=== PATIENT | female | born 1965 | race Caucasian/White ===

== ENCOUNTER → 2017-01-07 | Outpatient (CLI) | payer BC ==
--- NOTE | 2017-01-08 11:59 | DI ---
RIGHT FOOT, 01/07/2017 4:01 PM: Clinical History: Right foot pain. Previous Exam: None at this facility. 3 weightbearing views are submitted. There is no acute soft tissue, osseous, or joint abnormality. Th ere is a bunion and a hallux valgus deformity. Reading: Hallux valgus. Bunion. The exam is otherwise normal.
== END ==
LOC: RAD 17:02
PROVIDERS: ATTEND Podiatrist Foot & Ankle Surgery
DX: M79.671 Pain in right foot (principal); M21.611 Bunion of right foot; M20.11 Hallux valgus (acquired), right foot
CPT/HCPCS: 73630

== ENCOUNTER → 2017-01-18 | Outpatient (CLI) | payer BC ==
--- NOTE | 2017-01-19 10:31 | DI ---
MRI LOW EXTREMITY JNT W/O CN,01/18/2017 2:08 PM: Clinical History: Right foot pain Previous Exam: None at this facility. Findings: Multiplanar MR images are obtained through the right foot without contrast. Bony alignment is anatomic. No fractures are seen. There is a hallux valgus deformity identified of t he first metatarsophalangeal joint. There are some mild degenerative changes noted as well. Signal within the musculature is unremarkable. There is no evidence of ganglion cyst. The major vascular flow voids are unremarkable as well. Impression: Mild hallux valgus deformity and some degenerative changes of the first metatarsophalangeal joint.
== END ==
LOC: MRI 14:01
PROVIDERS: ATTEND Podiatrist Foot & Ankle Surgery
DX: M79.671 Pain in right foot (principal); M21.071 Valgus deformity, not elsewhere classified, right ankle
CPT/HCPCS: 73721

== ENCOUNTER → 2017-03-04 | Outpatient (CLI) | payer BC ==
--- NOTE | 2017-03-04 17:31 | EKG ---
[address] [address] Measurements Intervals [place] Rate: 61 P: 62 MO: 147 QRS: 66 QRSD: 88 T: 62 QT: 420 QTc: 422 Interpretive Statements SINUS RHYTHM WITH SINUS ARRHYTHMIA No previous ECG available for comparison Electronically Signed On 03-05-17 07:54:57 MDT by Nato Edmond MD [email or web address]
== END ==
LOC: MOB EKG 16:40
PROVIDERS: ATTEND Podiatrist Foot & Ankle Surgery
DX: Z01.810 Encounter for preprocedural cardiovascular examination (principal)
CPT/HCPCS: 93005; 93010

== ENCOUNTER 2017-03-18 05:53 | Day surgery (SDC) | payer BC ==
[~2017-03-18 05:53] MED LIST: LIDOCAINE W/ SODIUM BICARB 0.5 ML SYR ONE; Lactated Ringers 1,000 ML PRIMARY IV ONE; ceFAZolin Inj 2gm (Premix) 50 ML IV ONE
[2017-03-18 07:00] VITALS: RESP 20
[2017-03-18] MEDS ORDERED: MEPIVACAINE HCL/PF 20 MG/1 ML IV ONE (07:06)
[2017-03-18] MEDS ORDERED: MIDAZOLAM 5 MG/1 ML ONE ×2 (07:06→09:35)
[2017-03-18] MEDS ORDERED: BUPIVACAINE 0.5% W/EPI MPF -30 ML VIAL IV ONE (07:07)
[2017-03-18] MEDS ORDERED: fentaNYL Inj 100 MCG/2 ML VIAL ONE ×2 (07:07→09:39)
[2017-03-18] MEDS ORDERED: DEXAMETHASONE PF 10 MG/1 ML VIAL ONE (07:07)
[2017-03-18] MEDS ORDERED: BUPivacaine Inj 0.5% PF (5mg/ml) 10ml vial ONE (07:36)
[2017-03-18] MEDS ORDERED: Lidocaine Inj 1% 20 ML ONE (07:36)
--- NOTE | 2017-03-18 07:50 | CRNA.PROCE ---
Nerve Block Documentation - - Safety Measures: Time Out Taken, Site Verified - - Type of Nerve Block Used: Right Popliteal Fossa Block (Primary anesthetic for popliteal fossa block.) Position for Nerve Block: Prone Moniters Used During Block: EKG, SPO2, NIBP Oxygen Sumpplented: Yes Sedation Used - Enter Amount in Comment Field: Midazolam (mg): Yes (3 mg), Fentanyl (mcg): Yes (50 mcgs) Skin Prep Used: ChloroPrep (Twice) Draped: No Technique: Nerve Stimulator Nerve Block Needle Used: 80 mm ProBlk II Stimulation Hz: 1.0 Stimulation Staring mA: 1.8 Stimulation Ending mA: 0.48 Local Anesthetic - Enter Amt in Comment Field: 0.5 % Bupivicaine with Epinephrine 1:200,000 (mL): Yes (20 ml in 3 ml increments), 2 % Mepivacaine (mL) : Yes (10 ml in 3 ml increments) Additives to Nerve Blocks: Clonidine (mg): Yes (10)
[2017-03-18] MEDS ORDERED: Lactated Ringers 1,000 ML PRIMARY IV ONE (09:37)
[2017-03-18] MEDS ORDERED: BUPivacaine Liposome/PF (Exparel) Inj 20ml vial INFIL ONE ×2 (12:11)
[2017-03-18] MEDS ORDERED: NORMAL SALINE 10 ML SYRINGE FLUSH IVP PRN (12:50)
[2017-03-18 14:48] VITALS: TEMP 98
--- NOTE | 2017-03-19 10:10 | GEN.OPNOTE ---
Operative Report Surgeon: Dr. David Bradford DPFernandez Anesthesia Type: Regional, Local, MAC Anesthesia Provider: Quynh Ho CRNA Surgery Date: 03/18/17 Preoperative Diagnosis: Right foot hallux valgus deformity, with painful hammertoes and capsulitis of metatarsophalangeal joints 2 through 5. Postoperative Diagnosis: Same Procedure: Right foot scarf bunionectomy with screw fixation. Extensor digitorum longus tendon lengthening digits 2 through 5. Estimated Blood Loss (mL): 40 Description of Procedure: Under mild sedation the patient was wheeled into the operating room placed on the table in the supine position a well-padded pneumatic ankle tourniquet was placed about the right foot the foot was prepped scrubbed and draped in usual aseptic manner an Esmarch bandage was used to exsanguinate the right foot attention was then directed to the dorsal-medial aspect of the first MPJ where linear longitudinal incision was made incision was deepened using sharp and blunt dissection care being taken to identify and retract all vital neurovascular structures the incision was carried down to the level of the first MPJ capsule where a capsulotomy was performed capsular structures were reflected both medially and laterally it was then carried down to the level of the medial bony eminence which was transected with an oscillating bone saw. Attention was then directed to the first interspace where incision was made and carried down to the level of the sesamoid apparatus the sesamoid sling on the lateral sesamoid was released hands releasing the lateral sesamoid. his helped bring the sesamoids back down to the more corrected position. The subcutaneous tissue was reapproximated with 3-0 Monocryl and the skin was reapproximated with or 4-0 nylon. Once this was done a reverse scaft osteotomy was performed. The long arm of the osteotom was shifted laterally and was fixated with K wires. The alignment was then checked under fluoroscopy. Good reduction of the intermetatarsal angle was noted. The K wires just barely went through the far cortex of the osteotomy site and were then measured the appropriate size [place] cannulated screw was then placed over the K wire once the drill hole had been countersunk and measured the proximal screw was a 15 mm screw in the distal one was a 12 mm the screws were self-tapping and self threading they were then placed across the osteotomy the osteotomy site with excellent compression. The placement of the screws was then double checked with the C-arm and it was noted that the screws were too long. If the screws are placed on the measuring guide and include the head they measure at least a millimeter long, hense the sizes did not correlate. The screws were then replaced with 13 mm proximally and a 10 mm screw distally with excellent compression and alignment this was double checked on fluoroscopy and showed good placement and the screws were not too long. and alignment the screws and alignment was checked with C-arm and was noted to be excellent. Any rough bony edges were then removed on the dorsal and medial aspect of the first metatarsal and on the side of the metatarsal along with redundant bone shelf once the capital fragment was shifted laterally. The 1st mpj capsule was then sewed close with 2-0 Vicryl and 3-0 vycril and a running interlocking suture technique. The sub Q and skin was then reapproximated and coapted with 3-0 Monocryl and running interdermal suture technique. And was reinforced with 3-0 Vicryl in horizontal mattress suture technique. The ankle tourniquet was let down for 22minutes. An Esmarch bandage was used and the foot was exsanguinated and the ankle cuff was reinflated to 250 mmHg. Attention was then directed to the second, third and fourth and fifth digits where a linear longitudinal incision approximately 1.5 cm in length was made over the second, third, fourth, and fifth digits at the level of the dorsal MPJ the incision was deepened using sharp and blunt dissection care being taken to identify and retract all vital neurovascular structures. Once the extensor digitorum longus tendon was identified, on the second, third, fourth and fifth digits a Z tendon lengthening procedure was performed on each of theses tendons. The subcutaneous tissue was then reapproximated with 3-0 Monocryl. The skin was reapproximated and coapted with 4-0 vycril in a running intra dermal suture technique. Long acting Exparel was injected in and about the sx sites. The ankle tourniquet was deflated and a prompt hyperemic response was noted to all digits. A dry sterile compressive dressing was then applied to the toes consisting of Mastisol , Steri-Strips, Adaptic, 4 x 4 gauze, Keke and Coban. The ankle tourniquet was deflated and the patient had proper hyperemic response. Following a brief period of postoperative monitoring the patient will be discharged home with written and oral oral postoperative instructions. Patient is to followup in the clinic in one week.
--- NOTE | 2017-03-19 10:52 | DI ---
RIGHT FOOT, 03/18/2017 12:50 PM: Clinical History: Right hallux valgus deformity. Previous Exam: 01/07/2017. 3 views are submitted. The patient is status post bunionectomy and osteotomy of the first metatarsal bone. The remainder of the examination is normal. Reading: Status post bunionectomy and first metatarsal osteotomy for correction of the hallux pelvis deformity .
--- NOTE | 2017-03-19 15:35 | OPS CRUTCH ---
Diagnosis : Right Bunionectomy/Tendon Lengthening Referral Reason: Gait Training/Cam Walker S: The patient states that she has had a boot before; however, she has not used a walker before. O: The patient ambulated 75' and ascended and descended three stairs. The patient was also issued a CAM walker and was instructed in its proper use and care. A: The patient tolerated gait and stair training well. P: No further therapy is indicated at this time. MTDD
== END 2017-03-18 14:00 | disposition home or self-care (01) ==
LOC: SDSC 05:53
PROVIDERS: ATTEND Podiatrist Foot & Ankle Surgery
DX: M20.11 Hallux valgus (acquired), right foot (principal); M20.41 Other hammer toe(s) (acquired), right foot; M77.51 Other enthesopathy of right foot and ankle
CPT/HCPCS: 28234 ×4; 28296; 73630; 76001; 97116; C9290; J0690; J2704; J3010; L4360; S0020; J0670; J1100; J2001; J2250; J3490; J7120

== ENCOUNTER → 2017-03-24 | Outpatient (CLI) | payer BC ==
--- NOTE | 2017-03-24 11:10 | DI ---
HISTORY: Post-surgical pain throughout entire foot. Surgery last week. FINDINGS: Examination reveals post surgical two screws in the mid shaft of the first metatarsal appa rently for old osteotomy with no evidence of recent fracture or dislocation. IMPRESSION: 1. Post-surgical changes without evidence of acute fracture.
== END ==
LOC: RAD 10:23
PROVIDERS: ATTEND Podiatrist Foot & Ankle Surgery
DX: M79.671 Pain in right foot (principal); Z47.89 Encounter for other orthopedic aftercare; Z98.890 Other specified postprocedural states
CPT/HCPCS: 73630

== ENCOUNTER → 2017-04-22 | Outpatient (CLI) | payer BC ==
--- NOTE | 2017-04-22 16:27 | DI ---
XR FOOT COMPLETE MIN 3VW WB,04/22/2017 3:12 PM: Clinical History: Right foot pain Previous Exam: 03/24/17 Findings: 3 views of the right foot are obtained, and demonstrate postsurgical changes consistent with first me tatarsal osteotomy. Surrounding soft tissues are unremarkable. There are no fractures seen. Impression: No significant change from the prior exam. Postsurgical changes as above.
== END ==
LOC: MOB RAD 15:13
PROVIDERS: ATTEND Podiatrist Foot & Ankle Surgery
DX: Z47.89 Encounter for other orthopedic aftercare (principal); M79.671 Pain in right foot; M79.2 Neuralgia and neuritis, unspecified; Z98.890 Other specified postprocedural states
CPT/HCPCS: 73630

== ENCOUNTER → 2017-06-08 | Outpatient (CLI) | payer BC ==
[2017-06-10 06:46] LABS: PARASITIC EXAM FIN 1508 (())
== END ==
LOC: LAB 10:17
PROVIDERS: ATTEND Family Medicine
DX: R19.7 Diarrhea, unspecified (principal); R50.9 Fever, unspecified; R10.84 Generalized abdominal pain
CPT/HCPCS: 87046; 87177; 87205; 87209; 87328; 87329; 87493

== ENCOUNTER → 2017-06-09 | Outpatient (CLI) | payer BC ==
[2017-06-09 12:23] LABS: HEMATOCRIT 46.6 % (37.0-47.0); HEMOGLOBIN 16.9 g/dL (12.0-16.0); MEAN CORPUSCULAR HEMOGLOBIN 36.1 PG (27-31); MEAN CORPUSCULAR HGB CONC 36.3 g/dL (33-37); MEAN CORPUSCULAR VOLUME 99.6 FL (81-99); RED BLOOD COUNT 4.68 10^6/uL (4.20-5.40)
[2017-06-09 12:41] LABS: BLOOD UREA NITROGEN 13 mg/dL (7-22); BUN/CREATININE RATIO 16.25 (6-20); CALCIUM 10.4 mg/dL (8.7-10.7); EST GLOMERULAR FILTRATION > 60 (>60 ml/min/1.73m(2)); SERUM ALBUMIN 4.8 g/dL (3.5-4.8)
--- NOTE | 2017-06-09 13:03 | DI ---
History: Diarrhea Comparison: None: There is no indication of intestinal obstruction, or adynamic ileus. No free air is evident on this single supine view There are no abnormal calcific densities in the abdomen. There are multiple rounded calcific densitie s in lower pelvis likely all representing phleboliths. There are surgical clips project over right upper quadrant There are fallopian clips projected over the lower true pelvis. Impression There are multiple rounded calcific densities in the lower true pelvis which should represent phlebol iths. If there is clinical suspicion for obstructive uropathy, CT scan of the abdomen and pelvis with out contrast could be performed to rule out the possibility of distal ureteral calculi The abdomen is otherwise unremarkable
== END ==
LOC: RAD 12:13
PROVIDERS: ATTEND Family Medicine
DX: R19.7 Diarrhea, unspecified (principal); R10.84 Generalized abdominal pain; Z72.0 Tobacco use
CPT/HCPCS: 36415; 74000; 80053; 85027